=== PATIENT | female | born 1950 | race Caucasian/White ===

== ENCOUNTER 2017-12-25 07:42 | Outpatient (CLI) | payer MEDICARE, BC ==
--- NOTE | 2017-12-25 09:49 | ULT ---
HEPATIC DOPPLER ULTRASOUND: INDICATIONS: History of primary biliary cholangitis. TECHNIQUE: Fragoso-scale, color Doppler, and spectral Doppler images were obtained of the right upper quadrant and hepatic vasculature. FINDINGS: There is appropriate hepatopetal flow seen within the hepatic vasculature. Focal flow is seen within the splenic artery and hepatic vein. Appropriate flow is seen within the aorta and IVC. The liver measures 16.3 cm in its greatest longitudinal dimension. The gallbladder is normal appearing. No sonographic Arguello sign is reported. The common bile duct measures 2.3 mm. The pancreatic duct, at the level of the head, measures 2.9 mm . The spleen measures 10.4 cm. No free fluid is evident. IMPRESSION: Appropriate hepatopetal flow. POS: [place]
== END 2017-12-25 07:43 | disposition home or self-care (01) ==
LOC: SCSULT 07:42
PROVIDERS: ATTEND Internal Medicine Gastroenterology
DX: D64.9 Anemia, unspecified (principal); K74.3 Primary biliary cirrhosis
CPT/HCPCS: 76705

== ENCOUNTER 2018-04-23 15:40 | Outpatient (CLI) | payer MEDICARE, BC | END 2018-04-23 15:41 | disposition home or self-care (01) | LOC: BICMAMMO 15:40 | PROVIDERS: ATTEND Family Medicine | DX: Z12.31 Encounter for screening mammogram for malignant neoplasm of breast (principal); Z80.3 Family history of malignant neoplasm of breast | CPT/HCPCS: 77063; 77067 ==